=== PATIENT | male | born 1965 | race Caucasian/White ===

== ENCOUNTER 2017-06-11 10:06 | Emergency (ER) | payer OTHER ==
[2017-06-11 10:09] VITALS: BMI 34.8
[2017-06-11] MEDS ORDERED: ASPIRIN 81 MG CHEWABLE TABLETS PO ONE (10:36)
[2017-06-11] MEDS ORDERED: morphine CARPU-JECT 4 MG/1 ML DISP.SYRIN IVPUSH ONE (10:37)
[2017-06-11] MEDS ORDERED: morphine SULFATE 4 MG/ML VIAL ONE (10:38)
[2017-06-11] MEDS ORDERED: ASPIRIN 81 MG CHEWABLE TABLETS ONE (10:38)
--- NOTE | 2017-06-11 10:44 | PDOC ---
History of Present Illness - General History Source: Patient Exam Limitations: No Limitations <Reynaldo Castelan - Last Filed: 06/11/17 11:30> - History of Present Illness Initial Comments: 06/11/17 11:13 52 year old male, with no significant past medical history, who presents to the emergency room complaining of constant midsternal chest pain that radiates to the jaw. The pain feels like pressure and is 8/10 in severity. The onset of pain was at 8:00am this morning while the patient was sitting down approximately 1 hour after waking up. The patient states that he feels SOB when talking and taking a deep breath. Patient endorses nausea, but denies vomiting. He denies LOC Denies fever, chills, vomiting, abdominal pain, diarrhea. Denies cough. Denies lightheadedness, headache. Denies hx of any cardiac problems. Denies family cardiac hx. Allergies: NKDA Social hx: No tobacco use. PCP: located at [place]. 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 <Janki Castellano - Last Filed: 06/11/17 11:37> - General Chief Complaint: Chest Pain Stated Complaint: CHEST PAIN Time Seen by Provider: 06/11/17 10:31 Past History - Past Medical History COPD: No Other medical history: dewnies - Suicide/Smoking/Psychosocial Hx Smoking History: Never smoked Information on smoking cessation initiated: No Hx Alcohol Use: No Drug/Substance Use Hx: No Substance Use Type: None <Reynaldo Castelan - Last Filed: 06/11/17 11:30> <Janki Castellano - Last Filed: 06/11/17 11:37> - Past Medical History Allergies/Adverse Reactions: Allergies Allergy/AdvReac Type Severity Reaction Status Date / Time No Known Allergies Allergy Verified 06/11/17 10:09 Home Medications: Ambulatory Orders Aspirin [ASA -] 81 mg PO DAILY 06/11/17 Review of Systems - Review of Systems Able to Perform ROS?: Yes Comments:: 06/11/17 11:15 GENERAL/CONSTITUTIONAL: No fever or chills. No weakness. HEAD, EYES, EARS, NOSE AND THROAT: No change in vision. No ear pain or discharge. No sore throat. CARDIOVASCULAR: +chest pain that radiates to the jaw, SOB when talking or taking a deep breath. RESPIRATORY: No cough, wheezing, or hemoptysis. GASTROINTESTINAL: +nausea. No vomiting, diarrhea or constipation. GENITOURINARY: No dysuria, frequency, or change in urination. MUSCULOSKELETAL: No joint or muscle swelling or pain. No neck or back pain. SKIN: No rash NEUROLOGIC: No headache, vertigo, loss of consciousness, or change in strength/ sensation. ENDOCRINE: No increased thirst. No abnormal weight change. HEMATOLOGIC/LYMPHATIC: No anemia, easy bleeding, or history of blood clots. ALLERGIC/IMMUNOLOGIC: No hives or skin allergy. <Janki Castellano - Last Filed: 06/11/17 11:37> *Physical Exam - Vital Signs Last Vital Signs Temp Pulse Resp BP Pulse Ox 98.1 F 76 19 159/85 100 06/11/17 10:07 06/11/17 10:07 06/11/17 10:07 06/11/17 10:07 06/11/17 10:07 <Reynaldo Castelan - Last Filed: 06/11/17 11:30> - Vital Signs Last Vital Signs Temp Pulse Resp BP Pulse Ox 98.1 F 80 20 153/75 100 06/11/17 10:07 06/11/17 10:44 06/11/17 10:44 06/11/17 10:49 06/11/17 10:44 - Physical Exam Comments: 06/11/17 11:18 GENERAL: Awake, alert, and fully oriented, in no acute distress HEAD: No signs of trauma EYES: PERRLA, EOMI, sclera anicteric, conjunctiva clear ENT: Auricles normal inspection, hearing grossly normal, nares patent, oropharynx clear without exudates. Moist mucosa NECK: Normal ROM, supple, no lymphadenopathy, JVD, or masses LUNGS: Breath sounds equal, clear to auscultation bilaterally. No wheezes, and no crackles HEART: Regular rate and rhythm, normal S1 and S2, no murmurs, rubs or gallops ABDOMEN: Soft, nontender, normoactive bowel sounds. No guarding, no rebound. No masses EXTREMITIES: Normal range of motion, no edema. No clubbing or cyanosis. No cords, erythema, or tenderness NEUROLOGICAL: Cranial nerves II through XII grossly intact. Normal speech, normal gait SKIN: Warm, Dry, normal turgor, no rashes or lesions noted. <Rasheed Castellanossica - Last Filed: 06/11/17 11:37> Heart Score/ECG Review - History History: Highly suspicious - Electrocardiogram EKG: Non specific repolarization disturbance - Age Age: 45-65 - Risk Factors Risk Factors Heart Score: Yes Positive family hx of cardiac disease Based on the list above the patient has:: 1-2 risk factors #1 ECG reviewed & interpreted by me at: 10:15 06/11/17 10:39 NSR 76, no std, TWI V2, ?early STEMI II, III, avF, Q wave III, QTC 414 msec <Reynaldo Castelan - Last Filed: 06/11/17 11:30> ED Treatment Course - LABORATORY CBC & Chemistry Diagram: 06/11/17 10:42 06/11/17 10:42 - RADIOLOGY Radiology Studies Ordered: Category Date Time Status CHEST X-RAY PORTABLE* [RAD] Stat Radiology 06/11/17 10:36 Ordered <Reynaldo Castelan - Last Filed: 06/11/17 11:30> - LABORATORY CBC & Chemistry Diagram: 06/11/17 10:42 06/11/17 10:42 - ADDITIONAL ORDERS Additional order review: 06/11/17 10:42 RBC 5.11 MCV 87.8 MCHC 33.6 RDW 12.4 MPV 8.7 Neutrophils % 66.8 Lymphocytes % 22.8 Monocytes % 8.2 Eosinophils % 1.6 Basophils % 0.6 - Medications Given in the ED: ED Medications Discontinued Medications Generic Name Dose Route Start Last Admin Trade Name Keronq PRN Reason Stop Dose Admin Aspirin 162 mg 06/11/17 10:36 06/11/17 10:41 Asa - PO 06/11/17 10:37 162 mg ONCE ONE Administration Heparin Sodium (Porcine) 5,000 unit 06/11/17 10:46 06/11/17 10:53 Heparin - IVPUSH 06/11/17 10:47 5,000 unit ONCE ONE Administration Metoprolol Tartrate 5 mg 06/11/17 10:49 06/11/17 10:49 Lopressor Injection - IVPUSH 06/11/17 10:50 5 mg ONCE ONE Administration Morphine Sulfate 4 mg 06/11/17 10:37 06/11/17 10:42 Morphine Injection - IVPUSH 06/11/17 10:38 4 mg ONCE ONE Administration <Janki Castellano - Last Filed: 06/11/17 11:37> Medical Decision Making - Critical Care Time Total Critical Care Time (minutes): 30 Critical Care Statement: The care of this patient involved high complexity decision making to prevent further life threatening deterioration of the patient 's condition and/or to evaluate & treat vital organ system(s) failure or risk of failure. - Medical Decision Making 06/11/17 10:42 A portion of this note was documented by scribe services under my direction. I have reviewed the details of the note, within reason, and agree with the documentation with the following case summary and management plan written by me. Patient treated in the ED. Nursing notes are reviewed and incorporated into the medical decision-making. Vital signs reviewed. Peripheral IV access obtained by the nurse, laboratory studies are drawn and sent, reviewed and interpreted by myself. Vital Signs Temp Pulse Resp BP Pulse Ox 98.1 F 76 19 159/85 100 06/11/17 10:07 06/11/17 10:07 06/11/17 10:07 06/11/17 10:07 06/11/17 10:07 52-year-old male with no past medical history, nonsmoker, presents with crushing midsternal chest pressure radiating to left jaw and short of breath with nausea. First-time episode. EKG demonstrates a subtle ST elevations in 2, 3, aVF but no obvious reciprocal changes. Dr. Jeremiah Graham (cardiology) was consulted emergently and he came down to the ED. We'll obtain a stat echocardiogram. Aspirin was ordered. Dr. Graham also requests IV lopressor. Will dispo per cardiology, potentially cardiac catheterization. 06/11/17 10:46 Dr. Graham recommends emergent cardiac catheterization at [facility]. Requests ticagrelor and heparin. We'll be arranging transfer stat over to [facility]. Pt consents. <Reynaldo Castelan - Last Filed: 06/11/17 11:30> *DC/Admit/Observation/Transfer - Transfer to Acute Care Facility Accepting Physician:: [facility] - Dr. Jeremiah Graham <Reynaldo Castelan - Last Filed: 06/11/17 11:30> - Attestations Scribe Attestion: 06/11/17 11:17 Documentation prepared by LOREN Cronin, acting as medical information officer for Reynaldo Castelan MD. <Janki Castellano - Last Filed: 06/11/17 11:37> Diagnosis at time of Disposition: Chest pain Qualifiers: Chest pain type: unspecified Qualified Code(s): R07.9 - Chest pain, unspecified - Discharge Dispostion Disposition: TRANSFER ACUTE CARE/OTHER HOSP Condition at time of disposition: Guarded
[2017-06-11] MEDS ORDERED: METOPROLOL TARTRATE 5 MG/5 ML VIAL ONE (10:45)
[2017-06-11] MEDS ORDERED: HEPARIN NA (PORCINE) 5,000 UNITS/ML 1ML VIAL IVPUSH ONE (10:46)
[2017-06-11] MEDS ORDERED: METOPROLOL TARTRATE 5 MG/5 ML VIAL IVPUSH ONE (10:49)
[2017-06-11] MEDS ORDERED: TICAGRELOR 90 MG TABLET PO ONE (10:50)
[2017-06-11] MEDS ORDERED: HEPARIN NA (PORCINE) 5,000 UNITS/ML 1ML VIAL ONE (10:50)
--- NOTE | 2017-06-11 10:53 | CON.CARD ---
Consult Consult Specialty:: Cardiology Referred by:: Emergency Medicine Reason for Consultation:: Chest pressure - History of Present Illness Chief Complaint: Chest pressure History of Present Illness: 52 yo male without sig PMHx presented with retrosternal chest pressure radiating to jaw associated with nausea and dizziness, denies associated dyspnea, palpitations, true syncope, improved somewhat with deep breathing, EKG shows subtle ST changes inferiorly. Sxs and EKG changes resolved with appropriate medications. - History Source History Provided By: Patient Limitations to Obtaining History: No Limitations - Alcohol/Substance Use Hx Alcohol Use: No - Smoking History Smoking history: Never smoked Home Medications - Allergies Allergies/Adverse Reactions: Allergies Allergy/AdvReac Type Severity Reaction Status Date / Time No Known Allergies Allergy Verified 06/11/17 10:09 - Home Medications Home Medications: Ambulatory Orders Aspirin [ASA -] 81 mg PO DAILY 06/11/17 Review of Systems - Review of Systems Cardiovascular: reports: Chest Pain Gastrointestinal: reports: Nausea Vital Signs: Vital Signs Temperature 98.1 F 06/11/17 10:07 Pulse Rate 80 06/11/17 10:44 Respiratory Rate 20 06/11/17 10:44 Blood Pressure 153/75 06/11/17 10:49 O2 Sat by Pulse Oximetry (%) 100 06/11/17 10:44 Constitutional: Yes: No Distress, Calm Neck: Yes: Supple Respiratory: Yes: Regular, CTA Bilaterally Gastrointestinal: Yes: Normal Bowel Sounds, Soft Cardiovascular: Yes: Regular Rate and Rhythm JVD: No Carotid Bruit: No Heart Sounds: Yes: S1, S2 Edema: No - Other Data NSR @ [address] changes Problem List - Problems (1) Acute coronary syndrome Code(s): I24.9 - ACUTE ISCHEMIC HEART DISEASE, UNSPECIFIED (2) Chest pain Code(s): R07.9 - CHEST PAIN, UNSPECIFIED Qualifiers: Chest pain type: unspecified Qualified Code(s): R07.9 - Chest pain, unspecified (3) Unstable angina Code(s): I20.0 - UNSTABLE ANGINA Assessment/Plan 1. CAD acute coronary syndrome, unstable angina P:1. ASA, Brilinta, heparin, Lipitor, IV and po Lopressor 2. Echo to assess RWMA, ruling out for [place] 3. Transfer for [facility] +/- PCI at [facility] 4. Thank you for consultative opportunity
[2017-06-11 10:58] LABS: BASOPHIL 0.6 % (0-2.0); EOSINOPHIL 1.6 % (0-4.5); MCH 29.5 pg (25.7-33.7); MCHC 33.6 g/dl (32.0-35.9); MEAN CELL VOLUME 87.8 fl (80-96); MEAN PLT VOLUME 8.7 fl (7.5-11.1); NEUTROPHILS 66.8 % (42.8-82.8); PLATELET COUNT 205 K/MM3 (134-434); RDW 12.4 % (11.9-15.9); WHITE BLOOD COUNT 8.9 K/mm3 (4.0-10.0)
[2017-06-11] MEDS ORDERED: TICAGRELOR 90 MG TABLET PO SCH (11:00)
[2017-06-11] MEDS ORDERED: ATORVASTATIN CA 40 MG TABLET (FP) PO ONE (11:10)
[2017-06-11 11:15] LABS: ALBUMIN 3.7 g/dl (3.4-5.0); ANION GAP 12 (8-16); BILIRUBIN,TOTAL 0.6 mg/dL (0.2-1.0); CALCIUM 9.4 mg/dL (8.5-10.1); CO2 26 mmol/L (21-32); CREATININE 1.1 mg/dL (0.7-1.3); GLUCOSE,RANDOM 293 mg/dL (74-106); INR 1.14 (0.82-1.09); PROTHROMBIN TIME (PATIENT) 12.9 SEC (9.98-11.88); SGPT/ALT 34 U/L (12-78); TOT PROT 6.8 g/dl (6.4-8.2)
[2017-06-11] MEDS ORDERED: METOPROLOL TARTRATE 25 MG TABLET (FP) PO SCH (11:15)
[2017-06-11 11:18] LABS: ALK PHOS 82 U/L (45-117); CPK 138 IU/L (39-308); TROPONIN I < 0.02 ng/ml (0.00-0.05)
[2017-06-11 11:20] LABS: MAGNESIUM 1.7 mg/dL (1.8-2.4); SGOT/AST 23 U/L (15-37)
--- NOTE | 2017-06-11 13:34 | EKG ---
Test Reason : Blood Pressure : / mmHG Vent. Rate : 076 BPM Atrial Rate : 076 BPM P-R Int : 144 ms QRS Dur : 094 ms QT Int : 368 ms P-R-T Axes : 048 040 057 degrees QTc Int : 414 ms NORMAL SINUS RHYTHM ST ELEVATION, CONSIDER EARLY REPOLARIZATION, PERICARDITIS, OR INJURY ABNORMAL ECG NO PREVIOUS ECGS AVAILABLE Confirmed by PRINCE DELUCA MD ([id number]) on 06/11/2017 1:34:18 PM Referred By: Confirmed By:PRINCE DELUCA MD
[2017-06-11 13:56] VITALS: TEMP 98.2
[2017-06-11 14:36] VITALS: BP 136/86; PULSE 82
--- NOTE | 2017-06-12 10:27 | EKG ---
Test Reason : Blood Pressure : / mmHG Vent. Rate : 078 BPM Atrial Rate : 078 BPM P-R Int : 140 ms QRS Dur : 094 ms QT Int : 372 ms P-R-T Axes : 053 013 029 degrees QTc Int : 424 ms NORMAL SINUS RHYTHM NORMAL ECG WHEN COMPARED WITH ECG OF 11-JUN-2017 10:11, NO SIGNIFICANT CHANGE WAS FOUND Confirmed by NICOLE DEAN MD ([id number]) on 06/12/2017 10:27:23 AM Referred By: Confirmed By:NICOLE DEAN MD
== END 2017-06-11 14:41 | disposition short-term general hospital (02) ==
LOC: JER 10:06
PROC: 3E033GC Introduction of Other Therapeutic Substance into Peripheral Vein, Percutaneous Approach (ICD-10-PCS; principal; 2017-06-11)
PROC: 3E033GC Introduction of Other Therapeutic Substance into Peripheral Vein, Percutaneous Approach (ICD-10-PCS; 2017-06-11)
PROC: 3E033NZ Introduction of Analgesics, Hypnotics, Sedatives into Peripheral Vein, Percutaneous Approach (ICD-10-PCS; 2017-06-11)
DX: I24.9 Acute ischemic heart disease, unspecified (principal); I20.0 Unstable angina
CPT/HCPCS: 36415; 71010-TC; 80053; 82550; 83735; 84484; 85025; 85610; 93005; 93010; 93306-TC; 99285-25; J1644